=== PATIENT | male | born 1980 | race African-American/Black ===

== ENCOUNTER 2017-11-04 08:27 | Emergency (ER) | payer OTHER ==
[~2017-11-04] VITALS: Ht 177.8 cm; Wt 90.7 kg
[2017-11-04 08:37] VITALS: BP 140/93
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
[2017-11-04] MEDS ORDERED: METH4TAB2 PO (09:54)
[2017-11-04] MEDS ORDERED: DICL50TA4 PO (09:54)
[2017-11-04] MEDS ORDERED: CYCL10TA2 PO (09:54)
== END 2017-11-04 10:08 | disposition home or self-care (01) ==
LOC: ER 08:27
DX: S16.1XXA Strain of muscle, fascia and tendon at neck level, initial encounter (principal); S39.012A Strain of muscle, fascia and tendon of lower back, initial encounter; S63.502A Unspecified sprain of left wrist, initial encounter; S83.92XA Sprain of unspecified site of left knee, initial encounter; M47.812 Spondylosis without myelopathy or radiculopathy, cervical region; M47.816 Spondylosis without myelopathy or radiculopathy, lumbar region; K21.9 Gastro-esophageal reflux disease without esophagitis; Z90.89 Acquired absence of other organs; Y08.89XA Assault by other specified means, initial encounter; Y93.89 Activity, other specified; Y92.89 Other specified places as the place of occurrence of the external cause; Y99.8 Other external cause status
CPT/HCPCS: 72040; 72100; 73110; 73564; 99284

== ENCOUNTER 2019-11-26 03:12 | Emergency (ER) | payer OTHER ==
[~2019-11-26] VITALS: Ht 177.8 cm; Wt 90.9 kg
[~2019-11-26 03:12] MED LIST: CYCL10TA2 PO; DICL50TA4 PO; METH4TAB2 PO
[2019-11-26 03:27] VITALS: BP 122/80
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
[2019-11-26] MEDS ORDERED: NAPR-695 PO (03:59)
--- NOTE | 2019-11-26 04:05 | RAD ---
EXAM: FOOT LEFT 3V 11/26/2019 3:40 AM CLINICAL INDICATION:Pain, swelling COMPARISON:None TECHNIQUE:3 views of the left foot FINDINGS:No acute fracture or osseous destruction. There is hallux valgus. Joint spaces are maintained. No focal soft tissue abnormality. IMPRESSION:No acute osseous abnormality. Hallux valgus. Electronically signed by: Hina Newton MD (11/26/2019 4:02 AM) [id number]
[2019-11-26] MEDS ORDERED: IBUPROFEN 200 MG TABLET. PO ONE (04:15)
== END 2019-11-26 04:12 | disposition home or self-care (01) ==
LOC: ER 03:12
DX: S96.912A Strain of unspecified muscle and tendon at ankle and foot level, left foot, initial encounter (principal); K21.9 Gastro-esophageal reflux disease without esophagitis; Z87.891 Personal history of nicotine dependence; M20.12 Hallux valgus (acquired), left foot; W06.XXXA Fall from bed, initial encounter; Y93.89 Activity, other specified; Y92.89 Other specified places as the place of occurrence of the external cause; Y99.8 Other external cause status
CPT/HCPCS: 73630; 99283